=== PATIENT | male | born 1985 ===

== ENCOUNTER 2017-08-10 22:17 | Emergency (ER) | payer MEDICAID ==
[2017-08-10 22:28] VITALS: BP 114/71; PULSE 73; TEMP 97.7; O2SAT 99
--- NOTE | 2017-08-10 23:34 | C.PDOC ---
History Of Present Illness 32 year old male presents to the ED c/o pain and swelling to the left wrist. Patient reports that while at work he might have injured his wrist while pulling out a piece of wood. Patient denies blunt trauma, numbness, weakness. Time Seen by Provider: 08/10/17 22:30 Chief Complaint (Nursing): Abnormal Skin Integrity History Per: Patient History/Exam Limitations: no limitations Onset/Duration Of Symptoms: Hrs Current Symptoms Are (Timing): Still Present Location Of Injury: Left: Hand Quality Of Symptoms: Painful, Swollen Recent travel outside of the [place]: No Additional History Per: Patient Past Medical History Reviewed: Historical Data, Nursing Documentation, Vital Signs Vital Signs: Last Vital Signs Temp 97.7 F 08/10/17 22:26 Pulse 73 08/10/17 22:26 Resp 20 08/10/17 23:37 BP 114/71 08/10/17 22:26 Pulse Ox 99 08/11/17 01:44 - Medical History PMH: No Chronic Diseases Surgical History: No Surg Hx Family History: States: Unknown Family Hx - Social History Hx Alcohol Use: Yes Hx Substance Use: No - Immunization History Hx Tetanus Toxoid Vaccination: No Hx Influenza Vaccination: No Hx Pneumococcal Vaccination: No Review Of Systems Constitutional: Negative for: Fever, Chills Musculoskeletal: Positive for: Hand Pain (wrist, left) Skin: Negative for: Rash Neurological: Negative for: Weakness, Numbness Physical Exam - Physical Exam Appears: Non-toxic, No Acute Distress Skin: Normal Color, Warm, Dry Head: Atraumatic, Normacephalic Eye(s): bilateral: Normal Inspection Extremity: Normal ROM, Tenderness (dorsal aspect left wrist/distal forearm. Little erythema), Capillary Refill (< 2 seconds), No Deformity, Swelling ( dorsal aspect left wrist/distal forearm. minimal erythema) Pulses: Left Radial: Normal, Right Radial: Normal Neurological/Psych: Oriented x3, Normal Motor, Normal Sensation Gait: Steady ED Course And Treatment O2 Sat by Pulse Oximetry: 99 (ON RA) Pulse Ox Interpretation: Normal - Other Rad Left wrist X-Ray X-Ray: Interpreted by Me, Viewed By Me Interpretation: No fracture or dislocation seen Progress Note: Plan: - Left forearm X-Ray. - Tramadol 50 mg PO. Patient was placed on a wrist spint for support. Patient was advised to follow up with PMD and ortho in 2 days for further evaluation. Return precautions discussed and pt understand and agreed with plan Disposition Counseled Patient/Family Regarding: Diagnosis, Need For Followup, Rx Given - Disposition Disposition: HOME/ ROUTINE Disposition Time: 23:31 Condition: STABLE Additional Instructions: Please follow up in clinic Take Tylenol for pain Keep splint for support Return to ER if area is getting more swollen, hot to touch or redness extends to forearm or hand Prescriptions: Acetaminophen [Acetaminophen ER] 650 mg PO Q4 #20 tablet.er Instructions: Wrist Sprain (DC) Forms: [employer] (Malay) Print Language: GIBRALTARIAN - Clinical Impression Clinical Impression: Left wrist sprain - 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 - Scribe Statement The provider has reviewed the documentation as recorded by the Scribe Lyndon Aquino All medical record entries made by the Scribe were at my direction and personally dictated by me. I have reviewed the chart and agree that the record accurately reflects my personal performance of the history, physical exam, medical decision making, and the department course for this patient. I have also personally directed, reviewed, and agree with the discharge instructions and disposition.
[2017-08-10 23:38] VITALS: RESP 20
--- NOTE | 2017-08-11 07:54 | RAD ---
PROCEDURE: Radiographs of the Left Forearm HISTORY: pain, swelling distal forearm COMPARISON: None available. TECHNIQUE: Frontal and lateral views obtained. FINDINGS: BONES: No fracture identified. Focal area of increased sclerotic density measuring 1.5 cm in the distal 3rd of the radius, nonspecific. JOINT SPACES: No dislocation seen. Bony articulations appear maintained. OTHER FINDINGS: None. IMPRESSION: No fracture or dislocation identified. Focal area of increased sclerotic density measuring 1.5 cm in the distal 3rd of the radius, nonspecific. Consider follow-up with CT.
== END 2017-08-10 23:37 | disposition home or self-care (01) ==
LOC: C.ER 22:17
DX: S63.502A Unspecified sprain of left wrist, initial encounter (principal); X58.XXXA Exposure to other specified factors, initial encounter; Y99.0 Civilian activity done for income or pay

== ENCOUNTER 2017-08-12 11:52 | Emergency (ER) | payer MEDICAID ==
[2017-08-12 11:55] VITALS: BMI 20.9
[2017-08-12 11:57] VITALS: BP 124/70; PULSE 75; RESP 18; TEMP 98; O2SAT 99
--- NOTE | 2017-08-12 12:32 | C.PDOC ---
History Of Present Illness 32 yo male come in for re-evaluation of Left wrist/forearm pain developed 2 days ago after sustained injury at work. Pt admits, was seen here in ED initially when imaging performed without acute findings. Volar wrist splint noted on Left wrist. Pt admits, pain is the same, no improvement. Pt admits, " was working for past 2 days", construction. Pt describes pain as localized over Left wrist with intermittent radiation up to forearm and elbow, worse with wrist movement. Otherwise, pt denies deformity, weakness, sensory or vascular deficits to left arm.hand. Ambulate to ED for evaluation, not in any apparent distress. Time Seen by Provider: 08/12/17 12:06 Chief Complaint (Nursing): Upper Extremity Problem/Injury History Per: Patient Onset/Duration Of Symptoms: Gradual Past Medical History Reviewed: Historical Data, Nursing Documentation, Vital Signs Vital Signs: Last Vital Signs Temp 98.0 F 08/12/17 11:57 Pulse 75 08/12/17 11:57 Resp 18 08/12/17 11:57 BP 124/70 08/12/17 11:57 Pulse Ox 99 08/12/17 12:46 - Medical History PMH: No Chronic Diseases Family History: States: Unknown Family Hx - Social History Hx Tobacco Use: Yes Hx Alcohol Use: Yes Hx Substance Use: No - Immunization History Hx Tetanus Toxoid Vaccination: No Hx Influenza Vaccination: No Hx Pneumococcal Vaccination: No Review Of Systems Except As Marked, All Systems Reviewed And Found Negative. Constitutional: Negative for: Fever, Chills ENT: Negative for: Ear Discharge, Throat Pain Musculoskeletal: Negative for: Neck Pain, Back Pain Skin: Negative for: Rash, Lesions, Bruising Neurological: Negative for: Weakness, Numbness, Headache, Dizziness Physical Exam - Physical Exam Appears: Well, Non-toxic, No Acute Distress Skin: Normal Color, Warm, No Rash, No Ecchymosis Head: Normacephalic Eye(s): bilateral: PERRL Neck: Trachea Midline, No Midline Cervical Tenderness, No Paracervical Tenderness, No Step Off Deformity, Supple Back: No CVA Tenderness, No Vertebral Tenderness Extremity: Normal ROM (LUE w/o difficulty), Tenderness (dorsal aspect left wrist extend up to dorsal aspect left forearm. No edema, no erythema, no defomrity, no neurovascular deficist distally.), Capillary Refill (less than 2sec to Left hand), No Deformity, No Swelling Neurological/Psych: Oriented x3, Normal Speech, Normal Motor, Normal Sensation, Normal Reflexes ED Course And Treatment O2 Sat by Pulse Oximetry: 99 - Other Rad Forearm, left 08/10/17 X-Ray: Read By Radiologist Interpretation: IMPRESSION: No fracture or dislocation identified. Focal area of increased sclerotic density measuring 1.5 cm in the distal 3rd of the radius , nonspecific. Consider follow-up with CT. Progress Note: On re-evaluation, pt is afebrile, hemodynamicaly stable. Non- toxic. Left wrist: mild tenderness dorsal aspect/distal radius. No palpable deformity, no skin changes, no neurovascular deficits. Neurologicaly intact. Imaging from 08/10/17 review and results discussed with patient (+) no acute fx, sclerotic density in distal radius noted, rec. CT. Pt advised on course of ds. REf. to f/u with PMD, Ortho in 2 days for re-eval. and further imaging. return to ED if any worsening or new changes for re-evaluation. Disposition Counseled Patient/Family Regarding: Diagnosis, Need For Followup, Rx Given - Disposition Referrals: [facility] [Outside] Disposition: HOME/ ROUTINE Disposition Time: 12:32 Condition: STABLE Additional Instructions: Sling to Left arm Rest for 1 week Take medication as prescribed Follow up with PMD and ortho in 2-3 days for re-evaluation. return to Ed if any new changes. Prescriptions: Prednisone [Deltasone] 40 mg PO DAILY #3 tablet traMADol [Ultram] 50 mg PO TID #7 tab Instructions: Wrist Sprain (DC), Contusion (DC) Forms: [employer] (Slovenian) - Clinical Impression Clinical Impression: Wrist sprain
== END 2017-08-12 12:50 | disposition home or self-care (01) ==
LOC: C.ER 11:52
DX: S63.502D Unspecified sprain of left wrist, subsequent encounter (principal); X58.XXXD Exposure to other specified factors, subsequent encounter

== ENCOUNTER 2017-08-16 12:28 | Emergency (ER) | payer MEDICAID ==
[2017-08-16 12:28] VITALS: BMI 20.9
[2017-08-16 12:45] VITALS: TEMP 98.1
--- NOTE | 2017-08-16 13:01 | C.PDOC ---
History Of Present Illness 32 year old male presents to the emergency department after being recalled. Patient received a Xray of his forearm on 08-10-17 post injury, per xray report no fx, (+)sclerotic density that required a follow up with CT. Time Seen by Provider: 08/16/17 12:54 Chief Complaint (Nursing): Upper Extremity Problem/Injury History Per: Patient History/Exam Limitations: no limitations Onset/Duration Of Symptoms: Sudden Onset (6 days) Current Symptoms Are (Timing): Still Present Past Medical History Reviewed: Historical Data, Nursing Documentation, Vital Signs Vital Signs: Last Vital Signs Temp 98.1 F 08/16/17 16:40 Pulse 86 08/16/17 16:40 Resp 18 08/16/17 16:40 BP 137/82 08/16/17 16:40 Pulse Ox 96 08/16/17 21:46 - Medical History PMH: No Chronic Diseases Surgical History: No Surg Hx Family History: States: No Known Family Hx - Social History Hx Tobacco Use: Yes Hx Alcohol Use: Yes Hx Substance Use: No - Immunization History Hx Tetanus Toxoid Vaccination: No Hx Influenza Vaccination: No Hx Pneumococcal Vaccination: No Review Of Systems Musculoskeletal: Positive for: Other (left forearm pain) Physical Exam - Physical Exam Appears: Well, Non-toxic Skin: Normal Color, Warm Head: Atraumatic, Normacephalic Extremity: Tenderness (to the left distal forearm), Capillary Refill (<2 sec) Neurological/Psych: Oriented x3, Normal Speech, Normal Motor, Normal Sensation ED Course And Treatment O2 Sat by Pulse Oximetry: 96 (RA) Pulse Ox Interpretation: Normal - CT Scan/US Upper Extremity CT Other Rad Studies (CT/US): Read By Radiologist, Radiology Report Reviewed CT/US Interpretation: IMPRESSION: 2 cm sclerotic cortical based sclerotic non- expansile density at the interface between the mid and. distal thirds of the radius bone is nonspecific, and could reflect a benign sclerotic bony lesion. including fibrous dysplasia or nonossifying fibroma, bone island, versus unlikely malignant neoplasm. MR could be performed for further evaluation if clinically indicated. Progress Note: Plan: CT Upper Extremity w/o Contrast Reassessment Condition: Improved Disposition Counseled Patient/Family Regarding: Studies Performed, Diagnosis, Need For Followup - Disposition Referrals: Jordy Siddiqi III, MD [Staff Provider] - Michoacano Boyer MD [Staff Provider] - Disposition: HOME/ ROUTINE Disposition Time: 16:32 Condition: STABLE Additional Instructions: FOLLOW UP WITH ORTHOPEDIST OR HAND SURGEON FOR FURTHER EVALUATION AND POSSIBLE MRI IF CLINICALLY INDICATED. IF SYMPTOMS GET WORSE OR ANY NEW CONCERNING SYMPTOMS DEVELOP RETURN TO ED. 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 - Scribe Statement The provider has reviewed the documentation as recorded by the Scribe (Derek Ortizvi) All medical record entries made by the Scribe were at my direction and personally dictated by me. I have reviewed the chart and agree that the record accurately reflects my personal performance of the history, physical exam, medical decision making, and the department course for this patient. I have also personally directed, reviewed, and agree with the discharge instructions and disposition.
[2017-08-16 17:00] VITALS: BP 137/82; PULSE 86; RESP 18
[2017-08-16 21:46] VITALS: O2SAT 96
--- NOTE | 2017-08-17 09:14 | CT ---
CT left upper extremity forearm History: Sclerotic density. Comparison: X-ray dated 08/10/2017 Technique: Axial computed tomographic images of the left forearm were performed without intravenous contrast. Subsequently, sagittal and coronal reformatted images were obtained. This CT exam was performed using one or more of the following dose reduction techniques: Automated exposure control, adjustment of the mA and/or kV according to patient size, and/or use of iterative reconstruction technique. Findings: Again identified is a 2 centimeter sclerotic cortical based density/lesion at the interface between the mid and distal thirds of the radius bone. This is nonspecific. This is of uncertain clinical etiology. This may represent a sclerotic bony lesion such as fibrous dysplasia or nonossifying fibroma versus bone island versus less likely malignant neoplasm and or metastatic disease. Further evaluation with bone scan and/or MRI may be helpful if clinically indicated. Probable chronic ulnar styloid fracture. Impression: Again identified is a 2 centimeter sclerotic cortical based density/lesion at the interface between the mid and distal thirds of the radius bone. This is nonspecific. This is of uncertain clinical etiology. This may represent a sclerotic bony lesion such as fibrous dysplasia or nonossifying fibroma versus bone island versus less likely malignant neoplasm and or metastatic disease. Further evaluation with bone scan and/or MRI may be helpful if clinically indicated. Probable chronic ulnar styloid fracture. These findings were preliminarily reported at 4:20 p.m. on 08/16/[address] Willie Pulliam from [facility].
== END 2017-08-16 16:42 | disposition home or self-care (01) ==
LOC: C.ER 12:28
DX: R94.8 Abnormal results of function studies of other organs and systems (principal)